=== PATIENT | female | born 1970 | race Asian ===

== ENCOUNTER → 2016-12-09 | Outpatient (CLI) | payer OTHER | LOC: BMCIMAGING 12:19 | PROVIDERS: ATTEND Internal Medicine | DX: Z12.31 Encounter for screening mammogram for malignant neoplasm of breast (principal) | CPT/HCPCS: G0202 ==

== ENCOUNTER → 2016-12-17 | Outpatient (CLI) | payer OTHER | LOC: BMCIMAGING 10:04 | PROVIDERS: ATTEND Internal Medicine | DX: Z12.39 Encounter for other screening for malignant neoplasm of breast (principal); R92.8 Other abnormal and inconclusive findings on diagnostic imaging of breast | CPT/HCPCS: G0204 ==

== ENCOUNTER → 2017-08-20 | Outpatient (CLI) | payer OTHER | LOC: BMCIMAGING 10:16 | PROVIDERS: ATTEND Nurse Practitioner Adult Health | DX: R07.81 Pleurodynia (principal) ==

== ENCOUNTER → 2018-01-28 | Outpatient (CLI) | payer OTHER | LOC: BMCIMAGING 08:47 | PROVIDERS: ATTEND Internal Medicine | DX: Z12.31 Encounter for screening mammogram for malignant neoplasm of breast (principal) ==

== ENCOUNTER → 2018-03-27 | Outpatient (CLI) | payer OTHER ==
[~2018-03-27] MED LIST: IOPAMIDOL (ISOVUE-300) 100 ML BTL ONE
== END ==
LOC: FIMAGING 13:14
PROVIDERS: ATTEND Internal Medicine
DX: K57.32 Diverticulitis of large intestine without perforation or abscess without bleeding (principal)
CPT/HCPCS: Q9967

== ENCOUNTER → 2018-04-10 | Outpatient (CLI) | payer OTHER | LOC: FIMAGING 13:32 | PROVIDERS: ATTEND Internal Medicine | DX: N83.202 Unspecified ovarian cyst, left side (principal) ==

== ENCOUNTER 2018-08-03 23:07 | Emergency (ER) | payer OTHER ==
--- NOTE | 2018-08-03 23:27 | EDPHY ---
H & P Stated Complaint: Pain with urination starting this am, urgency, anxious Time Seen by Provider: 08/03/18 23:27 HPI/ROS: HPI CHIEF COMPLAINT: Urinary urgency, frequency, dysuria HISTORY OF PRESENT ILLNESS: Patient is a very pleasant 47-year-old female, she presents to the emergency room stating that earlier this morning she developed urgency and frequency it has progressed throughout the day. She tried over-the- counter medications including azo and cranberry. This did not help. She denies any back pain, abdominal pain, fever, vomiting. Denies significant medical history. She decided come the emergency room due to increasing frequency urgency and discomfort. Past Medical History: Denies significant medical Past Surgical History: Denies recent surgical history. Social History: Denies drugs alcohol tobacco. Family History: Noncontributory ROS REVIEW OF SYSTEMS: 10 Systems were reviewed and negative with the exception of the elements mentioned in the history of present illness. Exam Constitutional triage nursing summary reviewed, vital signs reviewed, awake/ alert. Eyes normal conjunctivae and sclera, EOMI, PERRLA. HENT normal inspection, atraumatic, moist mucus membranes, no epistaxis, neck supple/ no meningismus, no raccoon eyes. Respiratory clear to auscultation bilaterally, normal breath sounds, no respiratory distress, no wheezing. Cardiovascular rate normal, regular rhythm, no murmur, no edema, distal pulses normal. Gastrointestinal soft, non-tender, no rebound, no guarding, normal bowel sounds, no distension, no pulsatile mass. Genitourinary no CVA tenderness. Musculoskeletal no midline vertebral tenderness, full range of motion, no calf swelling, no tenderness of extremities, no meningismus, good pulses, neurovascularly intact. Skin pink, warm, & dry, no rash, skin atraumatic. Neurologic awake, alert and oriented x 3, AAOx3, moves all 4 extremities equally, motor intact, sensory intact, CN II-XII intact, normal cerebellar, normal vision, normal speech. Psychiatric normal mood/affect. Heme/Lymph/Immune no lymphadenopathy. Differential Diagnosis: Includes but is not limited to in a particular order UTI, cystitis, pyelonephritis Medical Decision Making: Plan for this patient check UA, urine culture, start on Keflex and pyridium. Re-evaluation: Urine else reviewed. This shows urinary tract infection. Urine cultures been sent. 1st dose of Keflex given in emergency room as well as pyrdium. Take- home bottle. I do encourage patient drink lots of fluids take her antibiotics as prescribed complete the course. Follow up with her primary care doctor and return emergency room if worsening symptoms. She is comfortable this plan understands. Source: Patient - Personal History LMP (Females 10-55): Irregular Current Tetanus Diphtheria and Acellular Pertussis (TDAP): Yes Tetanus Vaccine Date: < 10 YEARS - Medical/Surgical History Hx Asthma: No Hx Chronic Respiratory Disease: No Hx Diabetes: No Hx Cardiac Disease: No Hx Renal Disease: No Hx Cirrhosis: No Hx Alcoholism: No Hx HIV/AIDS: No Hx Splenectomy or Spleen Trauma: No Other PMH: Diverticulitis 2018 - Social History Smoking Status: Never smoked Constitutional: Initial Vital Signs Temperature (C) 37.0 C 08/03/18 23:11 Heart Rate 78 08/03/18 23:11 Respiratory Rate 17 08/03/18 23:11 Blood Pressure 130/83 H 08/03/18 23:11 O2 Sat (%) 98 08/03/18 23:11 O2 Delivery Mode Room Air Allergies/Adverse Reactions: No Known Allergies Allergy (Unverified 03/27/11 12:00) Home Medications: Medication Instructions Recorded Miscellaneous Medical Supply [NO 1 ea MISC AD 03/21/12 HOME MEDS] Cephalexin [Keflex] 500 mg PO Q6H #28 cap 08/03/18 Phenazopyridine HCl [Pyridium] 200 mg PO TID #15 tab 08/03/18 Medical Decision Making - Data Points Microbiology Results: MICROBIOLOGY 08/03/18 00:53 Urine,Clean Catch Urine Culture - Preliminary Gram Neg Juve Lactose Corn Cutter Two [place] Types Medications Given: Discontinued Medications Cephalexin (Keflex 500 Mg Prepack#4) 1 btl TAKEHOME EDNOW ONE PRN Reason: Protocol Stop: 08/03/18 23:56 Last Admin: 08/04/18 00:10 Dose: 1 btl Cephalexin HCl (Keflex) 500 mg PO EDNOW ONE PRN Reason: Protocol Stop: 08/03/18 23:56 Last Admin: 08/04/18 00:07 Dose: 500 mg Ibuprofen (Motrin) 600 mg PO EDNOW ONE Stop: 08/03/18 23:40 Last Admin: 08/03/18 23:42 Dose: 600 mg Phenazopyridine HCl (Pyridium) 200 mg PO EDNOW ONE Stop: 08/03/18 23:56 Last Admin: 08/04/18 00:08 Dose: 200 mg Departure - Departure Disposition: Home, Routine, Self-Care Clinical Impression: Urinary tract infection Qualifiers: Urinary tract infection type: acute cystitis Hematuria presence: with hematuria Qualified Code(s): N30.01 - Acute cystitis with hematuria Condition: Good Instructions: Cephalexin (By mouth), Urinary Tract Infection in Women (ED) Additional Instructions: 1. Drink lots of fluids stay well-hydrated 2. Antibiotics as prescribed. 3. Return to the emergency room if worsening symptoms, this includes abdominal pain, fever, vomiting, back pain not doing well. Referrals: Marisa Suarez MD [Primary Care Provider] - As per Instructions Prescriptions: Cephalexin [Keflex] 500 mg PO Q6H #28 cap Phenazopyridine HCl [Pyridium] 200 mg PO TID #15 tab
[2018-08-03] MEDS ORDERED: IBUPROFEN 600 MG TAB PO ONE (23:39)
[2018-08-03] MEDS ORDERED: PHENAZOPYRIDINE HCL 200 MG TAB PO ONE (23:55)
[2018-08-03] MEDS ORDERED: CEPHALEXIN 500MG PREPACK#4 BTL TAKEHOME ONE (23:55)
[2018-08-03] MEDS ORDERED: CEPHALEXIN 500 MG CAP PO ONE (23:55)
[2018-08-04 00:21] VITALS: BP 114/76
== END 2018-08-04 00:21 | disposition home or self-care (01) ==
DX: N30.01 Acute cystitis with hematuria (principal)